=== PATIENT | female | born 1965 | race Two or more races ===

== ENCOUNTER 2017-09-28 19:10 | Emergency (ER) | payer MEDICAID ==
[~2017-09-28] VITALS: Ht 157.5 cm; Wt 54.4 kg
[2017-09-28 20:12] LABS: Basophils # (auto) 0.1 uL; Hemoglobin 13.9 g/dL (12.2-16.2); Lymphocytes # (auto) 1.8 uL
[2017-09-28 20:14] LABS: Basophils % (auto) 1.3 % (0.0-2.0); Eosinophils # (auto) 0 uL; Eosinophils % (auto) 0.6 % (0.0-7.0); Hematocrit 40.6 % (36.0-46.0); Lymphocytes % (auto) 22.8 % (10.0-50.0); Mean Corpuscular Hemoglobin 30.7 pg (28.0-32.0); Mean Corpuscular Hgb Conc. 34.3 g/dL (32.0-36.0); Mean Corpuscular Volume 89.3 fL (80.0-100.0); Monocytes # (auto) 0.6 uL; Monocytes % (auto) 7.4 % (0.0-12.0); Neutrophils # (auto) 5.3 uL; Neutrophils % (auto) 67.9 % (37.0-80.0); Nucleated Red Blood Cells % 0.1 %; Platelet Count (auto) 475 10^3/uL (140-450); Red Blood Cells 4.54 10^6/uL (4.0-5.20); Red Cell Distribution Width 13.4 % (11.8-14.3); White Blood Cell 7.8 10^3/uL (4.4-10.8)
[2017-09-28 20:23] LABS: Albumin 4.1 g/dL (3.4-5.0); BUN/Creatinine Ratio 25.8; Calcium 9.1 mg/dL (8.5-10.1); Magnesium 2.4 mg/dL (1.6-2.6); Potassium 3.7 mmol/L (3.5-5.1)
[2017-09-28 20:26] LABS: Bilirubin, Total 0.2 mg/dL (0.2-1.0); Total Protein 8.5 g/dL (6.4-8.2)
[2017-09-28 23:09] LABS: Urine Bacteria NONE SEEN /hpf (None Seen); Urine Blood Negative /uL (Negative); Urine WBC 10 /hpf (0 - 5)
[2017-09-28 23:11] LABS: Alcohol, Urine < 3.0 mg/dL (0-5); Amphetamine Screen, Urine NEGATIVE (NEGATIVE); Barbiturate Scree,Urine NEGATIVE (NEGATIVE); Benzodiazephine Screen, Urine NEGATIVE (NEGATIVE); Cannabinoid Screen, Urine NEGATIVE (NEGATIVE); Cocaine Screen, Urine NEGATIVE (NEGATIVE); Opiate Scree,Urine NEGATIVE (NEGATIVE); Phencyclidine Screen, Urine NEGATIVE (NEGATIVE)
[2017-09-29] MEDS ORDERED: DONNATAL 5ml ORAL Elix (BELLADONNA ALK-PHENOBARB) PO ONE (07:00)
[2017-09-29] MEDS ORDERED: ALUM & MAG HYDROX-SIMETH LIQ(MAALOX) 30 ML PO ONE (07:00)
[2017-09-29] MEDS ORDERED: LIDOCAINE VISCOUS 2% 15ML UD PO ONE (07:00)
[2017-09-29] MEDS ORDERED: FAMOTIDINE 20 MG TAB PO ONE (07:00)
[2017-09-29 07:23] VITALS: BP 124/77
== END 2017-09-29 07:35 | disposition home or self-care (01) ==
LOC: ER 19:10 → EDBD 19:10 → ER 09-29 07:35
DX: R07.89 Other chest pain (principal); K21.9 Gastro-esophageal reflux disease without esophagitis
CPT/HCPCS: 36415; 71020; 80053; 80307; 81001; 83735; 84443; 84484; 84702; 85025; 93005